=== PATIENT | female | born 1995 | race Caucasian/White ===

== ENCOUNTER 2018-12-21 16:30 | Emergency (ER) | payer OTHER ==
--- NOTE | 2018-12-21 16:43 | PDOC ---
Rapid Medical Evaluation Time Seen by Provider: 12/21/18 16:36 Medical Evaluation: Allergies Allergy/AdvReac Type Severity Reaction Status Date / Time No Known Allergies Allergy Verified 07/30/15 09:32 12/21/18 16:41 I have performed a brief in-person evaluation of this patient. The patient presents with a chief complaint of: chest pain, short of breath Pertinent physical exam findings:stable and in NAD, non-focal I have ordered the following:labs, ekg The patient will proceed to the ED for further evaluation.
[2018-12-21 16:45] VITALS: BP 113/65; PULSE 74; TEMP 98.2; BMI 24.7
--- NOTE | 2018-12-21 17:41 | PDOC ---
History of Present Illness - General Chief Complaint: Cold Symptoms Stated Complaint: CHEST PAINS/VOMITTING/NAUSEA Time Seen by Provider: 12/21/18 16:36 - History of Present Illness Initial Comments: 12/21/18 17:34 23-year-old female without comorbidities presents for evaluation of chest thightness and shortness of breath weeks without systemic symptoms. She recently gave up taping which she feels may have contributed to her symptoms. Past History - Past Medical History Allergies/Adverse Reactions: Allergies Allergy/AdvReac Type Severity Reaction Status Date / Time pomegranate Allergy Verified 12/21/18 16:46 Home Medications: Ambulatory Orders Cetirizine HCl [Zyrtec -] 10 mg PO DAILY #30 tablet 12/21/18 COPD: No Psychiatric Problems: Yes (ANXIETY) - Immunization History Immunization Up to Date: No - Suicide/Smoking/Psychosocial Hx Smoking Status: No Smoking History: Never smoked Number of Cigarettes Smoked Daily: 0 Hx Alcohol Use: No Drug/Substance Use Hx: No Substance Use Type: None Review of Systems - Review of Systems Respiratory: Yes: Cough, Shortness of Breath *Physical Exam - Vital Signs Last Vital Signs Temp Pulse Resp BP Pulse Ox 98.2 F 74 16 113/65 99 12/21/18 16:30 12/21/18 16:30 12/21/18 16:30 12/21/18 16:30 12/21/18 16:30 ED Treatment Course - ADDITIONAL ORDERS Additional order review: Laboratory Results 12/21/18 16:43 Urine HCG, Qual Negative - RADIOLOGY Radiology Studies Ordered: Category Date Time Status CHEST PA & LAT [RAD] Stat Radiology 12/21/18 17:30 Ordered Medical Decision Making - Medical Decision Making 12/21/18 18:46 chest x-ray within normal limits *DC/Admit/Observation/Transfer Diagnosis at time of Disposition: Seasonal allergies - Discharge Dispostion Disposition: HOME Condition at time of disposition: Stable Decision to Admit order: No - Referrals Referrals: Gabriella Kang MD [Staff Physician] - - Patient Instructions Additional Instructions: Return return for worsening symptoms. Follow up with her primary care physician in 1-2 days your chest x-ray today was negative.Please take the medication as directed 1 tablet once a day and again follow-up with her primary care physician in one to 2 days without fail. - Post Discharge Activity
--- NOTE | 2018-12-23 14:18 | EKG ---
Test Reason : Blood Pressure : / mmHG Vent. Rate : 092 BPM Atrial Rate : 092 BPM P-R Int : 138 ms QRS Dur : 078 ms QT Int : 380 ms P-R-T Axes : 071 048 031 degrees QTc Int : 469 ms NORMAL SINUS RHYTHM WITH SINUS ARRHYTHMIA POSSIBLE LEFT ATRIAL ENLARGEMENT NONSPECIFIC T WAVE ABNORMALITY Confirmed by CARLO CALL MD ([id number]) on 12/23/2018 2:17:45 PM Referred By: Confirmed By:CARLO CALL MD
== END 2018-12-21 18:55 | disposition home or self-care (01) ==
LOC: JERFT 16:30
DX: J30.2 Other seasonal allergic rhinitis (principal)
CPT/HCPCS: 71046-TC-FY; 84703; 93005; 93010; 99282-25

== ENCOUNTER 2021-03-15 15:01 | Emergency (ER) | payer OTHER ==
[2021-03-15 15:09] VITALS: BP 126/78; PULSE 119; TEMP 98.3; BMI 25.2
[2021-03-15] MEDS ORDERED: hydrOXYzine HCL 10 MG/5 ML LIQUID BULK BOTTLE PO ONE (15:37)
[2021-03-15] MEDS ORDERED: hydrOXYzine PAMOATE 25 MG CAPSULE (FP) PO ONE ×2 (15:44→16:45)
[2021-03-15 16:08] LABS: BASO % 0.6 % (0-2.0); EOS % 0.3 % (0-4.5); HEMATOCRIT 41.3 % (32.4-45.2); MCH 29.8 pg (25.7-33.7); MCHC 33.9 g/dl (32.0-36.0); MEAN PLT VOLUME 9.1 fl (7.5-11.1); MONO % 6.1 % (3.8-10.2); PLATELET COUNT 289 10^3/uL (134-434); WHITE BLOOD COUNT 10.5 K/mm3 (4.0-10.0)
[2021-03-15 16:21] LABS: INR 1.06 (0.83-1.09); PROTHROMBIN TIME (PATIENT) 11.9 SEC (9.7-13.0)
[2021-03-15 16:43] LABS: CHLORIDE 108 mmol/L (98-107); SODIUM 140 mmol/L (136-145)
[2021-03-15 16:45] LABS: CALCIUM 9.4 mg/dL (8.5-10.1)
[2021-03-15 16:46] LABS: ALBUMIN 3.9 g/dl (3.4-5.0); ANION GAP 7 MMOL/L (8-16); CO2 25 mmol/L (21-32); GLUCOSE,RANDOM 88 mg/dL (74-106)
[2021-03-15 16:49] LABS: CREATININE 0.8 mg/dL (0.55-1.3); SGOT/AST 19 U/L (15-37); SGPT/ALT 21 U/L (13-61)
[2021-03-15 16:50] LABS: BILIRUBIN,TOTAL 0.4 mg/dL (0.2-1); TOT PROT 7.9 g/dl (6.4-8.2)
[2021-03-15 16:51] LABS: ALK PHOS 58 U/L (45-117)
== END 2021-03-15 18:19 | disposition home or self-care (01) ==
LOC: JER 15:01
DX: R00.2 Palpitations (principal)
CPT/HCPCS: 36415; 71046-TC-FY; 80053; 82550; 84439; 84443; 84484; 84703; 85025; 85610; 93005; 93010; 99284-25

== ENCOUNTER 2021-03-19 01:37 | Emergency (ER) | payer OTHER ==
[2021-03-19 02:19] VITALS: TEMP 97.5; BMI 24.1
[2021-03-19] MEDS ORDERED: FAMOTIDINE 20 MG/50 ML IVPB 20 MG/50 ML MG IVPB ONE ×2 (02:22→02:35)
[2021-03-19] MEDS ORDERED: METOCLOPRAMIDE HCL INJECTION 10 MG/2 ML VIAL IVPUSH ONE (02:22)
[2021-03-19] MEDS ORDERED: SODIUM CHLORIDE 1,000 ML IV STA (02:22)
[2021-03-19] MEDS ORDERED: ONDANSETRON 4 MG/2 ML VIAL IVPUSH ONE (02:24)
[2021-03-19] MEDS ORDERED: LORazepam 2 MG/ML SDV VIAL IVPUSH ONE (02:24)
[2021-03-19] MEDS ORDERED: LORazepam 2 MG/ML SDV VIAL ONE (02:35)
[2021-03-19] MEDS ORDERED: ONDANSETRON 4 MG/2 ML VIAL ONE (02:35)
[2021-03-19 03:57] LABS: BASO % 0.1 % (0-2.0); EOS % 0.3 % (0-4.5); HEMATOCRIT 44.1 % (32.4-45.2); HEMOGLOBIN 14.7 GM/dL (10.7-15.3); LYMPH % 5.1 % (8-40); MCH 29.5 pg (25.7-33.7); MCHC 33.2 g/dl (32.0-36.0); MEAN CELL VOLUME 88.7 fl (80-96); MEAN PLT VOLUME 9.9 fl (7.5-11.1); MONO % 3.6 % (3.8-10.2); NEUT % 90.9 % (42.8-82.8); PLATELET COUNT 301 10^3/uL (134-434); RBC 4.97 M/mm3 (3.60-5.2); RDW 14.7 % (11.6-15.6); WHITE BLOOD COUNT 11.5 K/mm3 (4.0-10.0)
[2021-03-19 04:19] LABS: ALBUMIN 3.7 g/dl (3.4-5.0); CALCIUM 9.2 mg/dL (8.5-10.1)
[2021-03-19 04:20] LABS: BLOOD UREA NITROGEN 22.8 mg/dL (7-18)
[2021-03-19 04:22] LABS: CREATININE 0.9 mg/dL (0.55-1.3)
[2021-03-19 04:24] LABS: BILIRUBIN,TOTAL 0.4 mg/dL (0.2-1); TOT PROT 7.3 g/dl (6.4-8.2)
[2021-03-19 05:24] LABS: PH,URINE 5.5 (5.0-8.0); URINE APPEARANCE CLEAR; URINE BILIRUBIN NEGATIVE (NEGATIVE); URINE COLOR YELLOW; URINE GLUCOSE (UA) NEGATIVE (NEGATIVE); URINE KETONE 1+ (NEGATIVE); URINE LEUK ESTERASE NEGATIVE (NEGATIVE); URINE NITRITE NEGATIVE (NEGATIVE); URINE PROTEIN NEGATIVE (NEGATIVE); URINE UROBILINOGEN 0.2 mg/dL (0.2-1.0)
[2021-03-19 05:27] LABS: HCG,QUALITATIVE URINE Negative
[2021-03-19 05:47] VITALS: BP 108/78; PULSE 88
== END 2021-03-19 05:47 | disposition home or self-care (01) ==
LOC: JER 01:37
PROC: 3E033GC Introduction of Other Therapeutic Substance into Peripheral Vein, Percutaneous Approach (ICD-10-PCS; principal; 2021-03-19)
PROC: 3E033NZ Introduction of Analgesics, Hypnotics, Sedatives into Peripheral Vein, Percutaneous Approach (ICD-10-PCS; 2021-03-19)
PROC: 3E033GC Introduction of Other Therapeutic Substance into Peripheral Vein, Percutaneous Approach (ICD-10-PCS; 2021-03-19)
PROC: 3E0337Z Introduction of Electrolytic and Water Balance Substance into Peripheral Vein, Percutaneous Approach (ICD-10-PCS; 2021-03-19)
DX: R11.2 Nausea with vomiting, unspecified (principal); R19.7 Diarrhea, unspecified
CPT/HCPCS: 36415; 80053; 81003; 83690; 84703; 85025; 99284-25

== ENCOUNTER 2021-04-02 16:17 | Emergency (ER) | payer OTHER ==
[2021-04-02 16:36] VITALS: BP 134/74; PULSE 122; BMI 23.1
[2021-04-02 16:37] VITALS: TEMP 97.9
== END 2021-04-02 18:00 | disposition left against medical advice (07) ==
LOC: JER 16:17
DX: R06.02 Shortness of breath (principal); F41.9 Anxiety disorder, unspecified
CPT/HCPCS: 93005; 93010; 99281-25

== ENCOUNTER 2021-11-07 21:20 | Emergency (ER) | payer OTHER ==
[2021-11-07 21:26] VITALS: BP 114/76; PULSE 101; RESP 18; TEMP 98.2; BMI 26.1
[2021-11-07] MEDS ORDERED: MAG HYDROX/AL HYDROX/SIMETH 30 ML UNIT-DOSE CUP PO ONE (21:57)
[2021-11-07] MEDS ORDERED: FAMOTIDINE 20 MG/50 ML IVPB 20 MG/50 ML MG IVPB ONE ×2 (21:57→22:35)
[2021-11-07] MEDS ORDERED: ONDANSETRON 4 MG/2 ML VIAL IVPUSH ONE (21:58)
[2021-11-07] MEDS ORDERED: ONDANSETRON 4 MG/2 ML VIAL ONE (22:34)
[2021-11-07] MEDS ORDERED: MAG HYDROX/AL HYDROX/SIMETH 30 ML UNIT-DOSE CUP ONE (22:34)
[2021-11-07] MEDS ORDERED: SODIUM CHLORIDE 0.9% 500 ML INFUS.BAG IV ONE (22:42)
[2021-11-07 22:54] LABS: BASO % 0.2 % (0-2.0); EOS % 3.3 % (0-4.5); HEMATOCRIT 38.1 % (32.4-45.2); HEMOGLOBIN 12.6 GM/dL (10.7-15.3); MCH 28.1 pg (25.7-33.7); MEAN CELL VOLUME 85.3 fl (80-96); MEAN PLT VOLUME 9.2 fl (7.5-11.1); MONO % 6.9 % (3.8-10.2); NEUT % 49.6 % (42.8-82.8); PLATELET COUNT 275 10^3/uL (134-434); RBC 4.46 M/mm3 (3.60-5.2); RDW 15.7 % (11.6-15.6); WHITE BLOOD COUNT 8.9 K/mm3 (4.0-10.0)
[2021-11-07 23:21] LABS: ALBUMIN 3.5 g/dl (3.4-5.0)
[2021-11-07 23:22] LABS: BLOOD UREA NITROGEN 14.4 mg/dL (7-18)
[2021-11-07 23:24] LABS: CREATININE 0.7 mg/dL (0.55-1.3)
[2021-11-07 23:26] LABS: BILIRUBIN,TOTAL 0.4 mg/dL (0.2-1)
== END 2021-11-08 00:42 | disposition home or self-care (01) ==
LOC: JER 21:20
PROC: 3E033GC Introduction of Other Therapeutic Substance into Peripheral Vein, Percutaneous Approach (ICD-10-PCS; principal; 2021-11-07)
PROC: 3E033GC Introduction of Other Therapeutic Substance into Peripheral Vein, Percutaneous Approach (ICD-10-PCS; 2021-11-07)
DX: R10.84 Generalized abdominal pain (principal)
CPT/HCPCS: 36415; 71046-TC-FY; 80053; 83690; 84484; 84703; 85025; 93005; 93010; 99285-25

== ENCOUNTER 2022-05-22 14:09 | Emergency (ER) | payer OTHER ==
[2022-05-22 14:29] VITALS: BP 133/88; PULSE 112; RESP 16; TEMP 98; BMI 26.9
[2022-05-22] MEDS ORDERED: SODIUM CHLORIDE 0.9% 500 ML INFUS.BAG IV ONE (15:11)
[2022-05-22] MEDS ORDERED: ACETAMINOPHEN 1000 MG/100 ML BAG IVPB ONE (15:11)
[2022-05-22] MEDS ORDERED: METOCLOPRAMIDE HCL INJECTION 10 MG/2 ML VIAL IVPUSH ONE (15:30)
[2022-05-22] MEDS ORDERED: METOCLOPRAMIDE HCL INJECTION 10 MG/2 ML VIAL ONE (15:39)
[2022-05-22] MEDS ORDERED: ACETAMINOPHEN INJECTION 100 ML IVPB ONE (15:39)
[2022-05-22 16:04] LABS: BASO % 0.9 % (0-2.0); EOS % 1.3 % (0-4.5); HEMATOCRIT 41.3 % (32.4-45.2); HEMOGLOBIN 13.8 GM/dL (10.7-15.3); LYMPH % 27.3 % (8-40); MCHC 33.5 g/dl (32.0-36.0); MEAN CELL VOLUME 89.4 fl (80-96); MEAN PLT VOLUME 8.9 fl (7.5-11.1); MONO % 9.1 % (3.8-10.2); NEUT % 61.4 % (42.8-82.8); PLATELET COUNT 331 10^3/uL (134-434); RBC 4.62 M/mm3 (3.60-5.2); RDW 14.3 % (11.6-15.6); WHITE BLOOD COUNT 8.3 K/mm3 (4.0-10.0)
[2022-05-22 16:21] LABS: EPI CELLS 5 /uL (0-25.1); HYALINE CASTS 0 /uL (0-3.1); URINE APPEARANCE CLEAR; URINE BACTERIA 22 /uL (0-1359); URINE BILIRUBIN NEGATIVE (NEGATIVE); URINE COLOR YELLOW; URINE GLUCOSE (UA) NEGATIVE (NEGATIVE); URINE KETONE NEGATIVE (NEGATIVE); URINE LEUK ESTERASE NEGATIVE (NEGATIVE); URINE NITRITE NEGATIVE (NEGATIVE); URINE PROTEIN NEGATIVE (NEGATIVE); URINE RBC 9 /uL (0-23.9); URINE UROBILINOGEN 0.2 mg/dL (0.2-1.0); URINE WBC 2 /uL (0-25.8)
[2022-05-22 16:27] LABS: CALCIUM 9.1 mg/dL (8.5-10.1)
[2022-05-22 16:28] LABS: ALBUMIN 3.4 g/dl (3.4-5.0); BLOOD UREA NITROGEN 11.4 mg/dL (7-18)
[2022-05-22 16:31] LABS: CREATININE 0.8 mg/dL (0.55-1.3)
[2022-05-22 16:33] LABS: BILIRUBIN,TOTAL 0.1 mg/dL (0.2-1)
[2022-05-22] MEDS ORDERED: LORazepam 2 MG/ML SDV VIAL IVPUSH ONE (17:09)
== END 2022-05-22 19:07 | disposition home or self-care (01) ==
LOC: JER 14:09
PROC: 3E0333Z Introduction of Anti-inflammatory into Peripheral Vein, Percutaneous Approach (ICD-10-PCS; principal; 2022-05-22)
PROC: 3E033GC Introduction of Other Therapeutic Substance into Peripheral Vein, Percutaneous Approach (ICD-10-PCS; 2022-05-22)
PROC: 3E033NZ Introduction of Analgesics, Hypnotics, Sedatives into Peripheral Vein, Percutaneous Approach (ICD-10-PCS; 2022-05-22)
PROC: 3E033GC Introduction of Other Therapeutic Substance into Peripheral Vein, Percutaneous Approach (ICD-10-PCS; 2022-05-22)
DX: R00.2 Palpitations (principal)
CPT/HCPCS: 0241U-QW; 36415; 71046-TC-FY; 80053; 81003; 84439; 84443; 84703; 85025; 85379; 93005; 93010; 99285-25

== ENCOUNTER 2022-07-28 19:17 | Emergency (ER) | payer OTHER ==
[2022-07-28 19:23] VITALS: BP 125/75; PULSE 87; RESP 16; TEMP 98.1; BMI 27.3
[2022-07-28] MEDS ORDERED: MAG HYDROX/AL HYDROX/SIMETH 30 ML UNIT-DOSE CUP PO ONE (21:07)
[2022-07-28] MEDS ORDERED: LIDOCAINE VISCOUS 2% ORAL/TOP 15 ML UNIT-DOSE CUP MM ONE (21:08)
[2022-07-28] MEDS ORDERED: MAG HYDROX/AL HYDROX/SIMETH 30 ML UNIT-DOSE CUP ONE (21:12)
[2022-07-28] MEDS ORDERED: LIDOCAINE VISCOUS 2% ORAL/TOP 15 ML UNIT-DOSE CUP ONE (21:12)
== END 2022-07-28 21:36 | disposition home or self-care (01) ==
LOC: FER 19:17
DX: K59.00 Constipation, unspecified (principal)
CPT/HCPCS: 99283-25